=== PATIENT | female | born 1960 | race Caucasian/White ===

== ENCOUNTER 2021-01-04 13:29 | Emergency (ER) | payer OTHER ==
[2021-01-04] MEDS ORDERED: Ondansetron 4 MG/2 ML SDV IVPUSH ONE (13:56)
[2021-01-04] MEDS ORDERED: Ketorolac 30 MG/ML SDV IVPUSH ONE (13:56)
[2021-01-04] MEDS ORDERED: Sodium Chloride 0.9% 500 ML IV SCH (14:00)
--- NOTE | 2021-01-04 14:11 | EDM.PDOC ---
ED HPI GENERAL MEDICAL PROBLEM - General Chief Complaint: Headache Stated Complaint: FELL ON AND HIT HEAD Time Seen by Provider: 01/04/21 13:46 Source of Information: Reports: Patient History Limitations: Reports: No Limitations - History of Present Illness INITIAL COMMENTS - FREE TEXT/NARRATIVE: HISTORY AND PHYSICAL: History of present illness: Patient is a 60-year-old female who presents to the emergency room with complaints of headache after a fall. She states on Thursday she slipped and fell backwards hitting the back of her head. She states she does not believe she lost consciousness although does not remember how she got back inside. Since that time she has had a dull headache with mild light sensitivity and nausea. Patient denies any fever, chills, change in vision, chest pain, back pain, shortness of breath or cough. Denies any abdominal pain, nausea, vomiting, diarrhea, constipation or dysuria. Has not noted any blood in urine or stool. Patient has been eating and drinking appropriately. Review of systems: As per history of present illness and below otherwise all systems reviewed and negative. Past medical history: As per history of present illness and as reviewed below otherwise noncontributory. Surgical history: As per history of present illness and as reviewed below otherwise noncontributory. Social history: See social history for further information Family history: As per history of present illness and as reviewed below otherwise noncontributory. Physical exam: General: Well developed and well nourished 60-year-old female. Alert and orientated x 3. Nontoxic in appearance and in no acute distress. Vital signs are stable and have been reviewed by me. Nursing notes were reviewed. HEENT: Mild tenderness to the posterior scalp, no obvious injury is noted, no crepitus or palpable differences. Normocephalic, pupils equal and reactive bilaterally, negative for conjunctival pallor or scleral icterus, mucous membranes moist, TMs normal bilaterally, throat clear, neck supple, nontender, trachea midline. No drooling or trismus noted. No meningeal signs. No hot potato voice noted. Lungs: Clear to auscultation bilaterally. No wheezes, rales, or rhonchi. Normal work of breathing, no accessory muscles used. Heart: S1S2, regular rate and rhythm without overt murmur, gallops, or rubs. No JVD. No peripheral edema Abdomen: Soft, nondistended, nontender. Normoactive bowel sounds. Negative for masses or costovertebral tenderness. Skin: Intact, warm, dry. No lesions or rashes noted. Hematologic: No petechiae or purpra. Mucosa appropriate color and normal nail bed color and refill. Extremities: Atraumatic, moves all extremities per self without difficulty or deficits, negative for cords or calf pain. Neurovascular unremarkable. Neuro: Awake, alert, oriented. Cranial nerves II through XII unremarkable. Cerebellum unremarkable. Motor and sensory unremarkable throughout. Exam nonfocal. Psychiatric: Mood and affect are appropriate. Normal thought process. Answering questions appropriately. Notes: *This patient was seen and evaluated during the 2019 SARS-CoV-2 novel coronavirus pandemic period. Community viral transmission is ongoing at time of this encounter and the emergency department is operating under pandemic response procedures. Head CT shows no acute findings. Old right basal ganglia lacunar infarction. She does feel improved after medications. I have talked with the patient about today's findings, in addition to providing specific details for plan of care. Reassessment at the time of disposition demonstrates that the patient is in no acute distress. The patient is stable for discharge, counseling was provided and we discussed in great detail signs and symptoms that would prompt them to return to the Emergency Department. Medication, follow up and supportive care measures were reviewed and discussed. Voices understanding and is agreeable to plan of care. Denies any further questions or concerns at this time. Diagnostics: Head CT Therapeutics: Toradol, Zofran, IV fluids Prescription: None Impression: Headache Plan: 1. You were evaluated today on an emergent basis. Your head CT is within normal limits. 2. You can alternate Tylenol and ibuprofen as needed for pain and fever management. 3. We encourage you to follow up with your primary care provider and/or recommended specialist in the next few days for re-evaluation and further care/management. 4. If your symptoms should worsen, new symptoms develop or any of the signs and symptoms we discussed should arise please return to the emergency room or call 911 (if needed). Definitive disposition and diagnosis as appropriate pending reevaluation and review of above. back of head Pain Score (Numeric/FACES): 5 - Related Data Allergies Allergy/AdvReac Type Severity Reaction Status Date / Time No Known Allergies Allergy Verified 01/04/21 13:46 Home Meds: Home Meds Citalopram [Citalopram HBr] 20 mg PO DAILY 01/04/21 [History] Enalapril/Hydrochlorothiazide [Enalapril-HCTZ 10-25 MG] 1 each PO DAILY 01/04/21 [History] Fexofenadine [Sheba] 180 mg PO DAILY 01/04/21 [History] Montelukast [Singulair] 10 mg PO DAILY 01/04/21 [History] Oxybutynin 5 mg PO DAILY 01/04/21 [History] atorvaSTATin [Lipitor] 20 mg PO BEDTIME 01/04/21 [History] Past Medical History Cardiovascular History: Reports: High Cholesterol, Hypertension Psychiatric History: Reports: Anxiety - Infectious Disease History Infectious Disease History: Reports: None Social & Family History - Family History Family Medical History: No Pertinent Family History - Caffeine Use Caffeine Use: Reports: None - Recreational Drug Use Recreational Drug Use: No ED ROS GENERAL - Review of Systems Review Of Systems: Comprehensive ROS is negative, except as noted in HPI. - Physical Exam Exam: See Below (See dictation) Course - Vital Signs Last Recorded V/S: Last Vital Signs Temp 97.2 F 01/04/21 13:44 Pulse 80 01/04/21 13:44 Resp 16 01/04/21 13:44 BP 135/96 H 01/04/21 13:44 Pulse Ox 94 L 01/04/21 13:44 - Orders/Labs/Meds Orders: Active Orders 24 hr Category Date Time Status Sodium Chloride 0.9% [Normal Saline] 500 ml Med 01/04/21 14:00 Active IV STAT Medication Orders Sodium Chloride (Normal Saline) 500 mls @ 999 mls/hr IV STAT KENNETH Last Admin: 01/04/21 14:29 Dose: 999 mls/hr Documented by: OTF Meds: Medications Generic Name Dose Route Start Last Admin Trade Name Freq PRN Reason Stop Dose Admin Sodium Chloride 500 mls @ 999 mls/hr 01/04/21 14:00 01/04/21 14:29 Normal Saline IV 999 mls/hr STAT KENNETH Administration Discontinued Medications Generic Name Dose Route Start Last Admin Trade Name Freq PRN Reason Stop Dose Admin Ketorolac Tromethamine 30 mg 01/04/21 13:56 01/04/21 14:28 Ketorolac 30 Mg/Ml Sdv IVPUSH 01/04/21 13:57 30 mg ONETIME ONE Administration Ondansetron HCl 4 mg 01/04/21 13:56 01/04/21 14:28 Ondansetron 4 Mg/2 Ml Sdv IVPUSH 01/04/21 13:57 4 mg ONETIME ONE Administration Departure - Departure Time of Disposition: 16:18 Disposition: Home, Self-Care 01 Clinical Impression: Headache Qualifiers: Headache type: tension-type Headache chronicity pattern: acute headache Intractability: not intractable Qualified Code(s): G44.209 - Tension-type headache, unspecified, not intractable - Discharge Information Instructions: General Headache Without Cause, [id number] Referrals: Ramo Null MD [Primary Care Provider] - Forms: ED Department Discharge Additional Instructions: The following information is given to patients seen in the emergency department who are being discharged to home. This information is to outline your options for follow-up care. We provide all patients seen in our emergency department with a follow-up referral. The need for follow-up, as well as the timing and circumstances, are variable depending upon the specifics of your emergency department visit. If you don't have a primary care physician on staff, we will provide you with a referral. We always advise you to contact your personal physician following an emergency department visit to inform them of the circumstance of the visit and for follow-up with them and/or the need for any referrals to a consulting specialist. The emergency department will also refer you to a specialist when appropriate. This referral assures that you have the opportunity for follow-up care with a specialist. All of these measure are taken in an effort to provide you with optimal care, which includes your follow-up. Under all circumstances we always encourage you to contact your private physician who remains a resource for coordinating your care. When calling for follow-up care, please make the office aware that this follow-up is from your recent emergency room visit. If for any reason you are refused follow-up, please contact the [facility] Emergency Department at and asked to speak to the emergency department charge nurse. [facility] [address] [place] [id number] [facility] [address] [place] [address] Thank you for choosing the [facility] emergency department in [place] for your medical needs today. It was a pleasure caring for you. Today you were seen in the emergency department for headache. 1. You were evaluated today on an emergent basis. Your head CT is within normal limits. 2. You can alternate Tylenol and ibuprofen as needed for pain and fever management. 3. We encourage you to follow up with your primary care provider and/or recommended specialist in the next few days for re-evaluation and further care/management. 4. If your symptoms should worsen, new symptoms develop or any of the signs and symptoms we discussed should arise please return to the emergency room or call 911 (if needed). Sepsis Event Note (ED) - Evaluation Sepsis Screening Result: No Definite Risk - Focused Exam Vital Signs: Vital Signs Temp Pulse Resp BP Pulse Ox 01/04/21 13:44 97.2 F 80 16 135/96 H 94 L - My Orders Last 24 Hours: My Active Orders 01/04/21 14:00 Sodium Chloride 0.9% [Normal Saline] 500 ml IV STAT - Assessment/Plan Last 24 Hours: My Active Orders 01/04/21 14:00 Sodium Chloride 0.9% [Normal Saline] 500 ml IV STAT
--- NOTE | 2021-01-04 16:16 | CT ---
INDICATION: Hit back of head, possible LC, headache for 2 days TECHNIQUE: Head CT without contrast. COMPARISON: None FINDINGS: CSF spaces: Within normal limits for age. Brain parenchyma: Normal arredondo-white junction. No sign of mass, hemorrhage, or midline shift. Old right basal ganglia lacunar infarction. Skull base and calvarium: The visualized paranasal sinuses and mastoid air cells demonstrate no acute or significant findings. The visualized orbits are grossly unremarkable. No skull fractures. IMPRESSION: 1. No acute findings. 2. Old right basal ganglia lacunar infarction. Please note that all CT scans at this facility use dose modulation, iterative reconstruction, and/or weight-based dosing when appropriate to reduce radiation dose to as low as reasonably achievable. Dictated by Mel Dunaway MD @ 01/04/2021 4:15:[address] Mel Dunaway @ Jan 04 2021 4:15PM
[2021-01-04] MEDS ORDERED: LORazepam 2 MG/ML SDV IVPUSH ONE (16:19)
[2021-01-04 19:00] VITALS: BP 149/90; PULSE 65
== END 2021-01-04 16:45 | disposition home or self-care (01) ==
LOC: MW.ED 13:29
DX: G44.209 Tension-type headache, unspecified, not intractable (principal); E78.00 Pure hypercholesterolemia, unspecified; I10 Essential (primary) hypertension; Z79.899 Other long term (current) drug therapy
CPT/HCPCS: 70450; 96374; 96375; 99284; J1885; J2060; J2405; J7040; 99283

== ENCOUNTER 2023-02-27 12:32 | Emergency (ER) | payer BC ==
[2023-02-27] MEDS ORDERED: Diphtheria,Pertussis(Acell),Tetanus Vaccine 0.5 ML Syringe IM ONE (13:04)
[2023-02-27] MEDS ORDERED: Acetaminophen 500 MG Tab PO STA (13:04)
[2023-02-27] MEDS ORDERED: Lidocaine 1% 5 ML VIAL INJECT STA (13:04)
[2023-02-27 16:11] VITALS: BP 139/83; PULSE 79
== END 2023-02-27 16:10 | disposition home or self-care (01) ==
LOC: MW.ED 12:32
DX: S61.512A Laceration without foreign body of left wrist, initial encounter (principal); S61.211A Laceration without foreign body of left index finger without damage to nail, initial encounter; E78.00 Pure hypercholesterolemia, unspecified; I10 Essential (primary) hypertension; Z23 Encounter for immunization; Z79.899 Other long term (current) drug therapy; W25.XXXA Contact with sharp glass, initial encounter; Y92.000 Kitchen of unspecified non-institutional (private) residence as the place of occurrence of the external cause
CPT/HCPCS: 12002; 73130; 90471; 90715; 99283; A9270; J3490